=== PATIENT | male | born 1960 | race Caucasian/White ===

== ENCOUNTER 2019-12-10 12:25 | Inpatient (IN) ==
[2019-12-10] MEDS ORDERED: Acetaminophen IV 1,000 MG/100 ML INFUS..BTL IVPB ONE (12:44)
[2019-12-10] MEDS ORDERED: Ondansetron ODT 4 MG TAB.RAPDIS SL ONE (12:44)
[2019-12-10] MEDS ORDERED: *HR* OxyCODONE Immed Rel 5 MG TABLET PO PRN (12:44)
[2019-12-10] MEDS ORDERED: *HR* FentaNYL (PF) 100 MCG/2 ML VIAL IVP PRN (12:44)
[2019-12-10] MEDS ORDERED: diazePAM 5 MG TABLET PO ONE (12:44)
[2019-12-10] MEDS ORDERED: *HR* HYDROmorphone PF 0.5 MG/0.5 ML SYRINGE IVP PRN (12:44)
[2019-12-10] MEDS ORDERED: *HR* Promethazine 25 MG/ML VIAL IVP PRN (12:44)
[2019-12-10] MEDS ORDERED: *HR* Meperidine 25 MG/ML SYRINGE IVP PRN (12:44)
[2019-12-10] MEDS ORDERED: *HR* Midazolam HCl 2 MG/2 ML VIAL IVP PRN (12:44)
[2019-12-10] MEDS ORDERED: cefOXitin 2,000 MG in Water for inj. (sterile) 20 ML IVP ONE (13:06)
[2019-12-10] MEDS ORDERED: Ringers Solution, Lactated 1,000 ML IVC SCH (13:15)
[2019-12-10] MEDS ORDERED: Lidocaine -MPF 4% 5 ML AMPUL ONE (15:27)
[2019-12-10] MEDS ORDERED: Dexamethasone 4 MG/ML VIAL ONE (15:27)
[2019-12-10] MEDS ORDERED: Ondansetron 4 MG/2 ML VIAL ONE (15:27)
[2019-12-10] MEDS ORDERED: *HR* FentaNYL (PF) 100 MCG/2 ML VIAL ONE (15:27)
[2019-12-10] MEDS ORDERED: Lidocaine -MPF 2% 2 ML VIAL ONE (15:27)
[2019-12-10] MEDS ORDERED: *HR* Rocuronium Bromide 50 MG/5 ML VIAL ONE ×3 (15:27→16:34)
[2019-12-10] MEDS ORDERED: *HR* Propofol 200 MG/20 ML VIAL IVP ONE (15:28)
[2019-12-10] MEDS ORDERED: *HR* Magnesium Sulfate 1 GM/2 ML VIAL ONE (17:31)
[2019-12-10] MEDS ORDERED: *HR* HYDROMORPHONE 2 MG/ML VIAL ONE (17:35)
[2019-12-10] MEDS ORDERED: EPHEDrine 50 MG/ML VIAL ONE (18:49)
[2019-12-10] MEDS ORDERED: Neostigmine Methylsulfate 3 MG/3 ML SYRINGE ONE (19:31)
[2019-12-10] MEDS ORDERED: Naloxone 0.4 MG/ML INJ IVP PRN (21:04)
[2019-12-10] MEDS ORDERED: Ondansetron 4 MG/2 ML VIAL IVP PRN (21:04)
[2019-12-10] MEDS: 0.9 % Sodium Chloride 1,000 ML IVC SCH (21:42)
[2019-12-11] MEDS: Ketorolac 15 MG/ML VIAL IVP SCH ×5 (00:50→23:53)
[2019-12-11] MEDS: *HR* Heparin 5,000 UNIT/ML VIAL SQ SCH ×2 (05:20→17:42)
[2019-12-11 05:32] LABS: Basophils % 0.1 %; Hematocrit 41.7 % (37.5-50.1); Hemoglobin 13.6 g/dL (12.9-16.9); Immature Granulocytes % 0.3 % (0-4); Lymphocytes # 0.7 K/mcL (0.6-4.6); Lymphocytes % 5.4 %; Mean Corpuscular HGB Conc 32.6 g/dL (31.6-35.5); Mean Corpuscular Hemoglobin 30.8 pg (28.0-33.3); Mean Corpuscular Volume 94.3 fL (83.0-100.0); Mean Platelet Volume 9.9 fL (9.4-12.4); Monocytes # 0.5 K/mcL (0.0-1.3); Monocytes % 3.4 %; Platelet Count 218 K/mcL (140-400); Red Blood Count 4.42 M/mcL (4.19-5.50); Red Cell Distribution Width 12.7 % (11.5-14.5); Segmented Neutrophils % 90.8 %; White Blood Count 13.2 K/mcL (4.3-11.1)
[2019-12-11 05:43] LABS: BUN/Creatinine Ratio 22 (6-26); Blood Urea Nitrogen 18 mg/dL (6-20); Calcium 8.8 mg/dL (8.6-10.3); Carbon Dioxide 28 mEq/L (23-29); Chloride 102 mEq/L (98-107); Glucose 149 mg/dL (70-105); Osmolality,Calculated 289 (280-300); Potassium 4.1 mEq/L (3.5-5.1); Sodium 137 mEq/L (136-145); eGFR For African Americans > 60 (> 60); eGFR For Non-African Americans > 60 (> 60)
[2019-12-11] MEDS: 0.9 % Sodium Chloride 1,000 ML IVC SCH (14:01)
[2019-12-12] MEDS: 0.9 % Sodium Chloride 1,000 ML IVC SCH (04:16)
[2019-12-12] MEDS: Ketorolac 15 MG/ML VIAL IVP SCH ×2 (05:58→13:28)
[2019-12-12] MEDS: *HR* Heparin 5,000 UNIT/ML VIAL SQ SCH (05:58)
[2019-12-12 08:30] VITALS: BP 110/58
== END 2019-12-12 15:39 | disposition home or self-care (01) | DRG 331 ==
LOC: SAMDAY 12:25 → 3ANU 21:00
PROVIDERS: ADMIT Surgery; ATTEND Surgery